=== PATIENT | male | born 1935 | race Caucasian/White ===

== ENCOUNTER 2022-09-21 09:07 | Outpatient (CLI) | payer MEDICARE, BC | END 2022-09-21 09:08 | disposition home or self-care (01) | LOC: BURCT 09:07 | PROVIDERS: ATTEND Specialist | DX: Z48.815 Encounter for surgical aftercare following surgery on the digestive system (principal); Z90.49 Acquired absence of other specified parts of digestive tract; J90 Pleural effusion, not elsewhere classified; J98.11 Atelectasis | CPT/HCPCS: 74176 ==